=== PATIENT | female | born 1975 | race African-American/Black ===

== ENCOUNTER → 2016-12-19 | Outpatient (CLI) | payer OTHER ==
[2016-12-19 10:54] LABS: BASO # 0.1 x10^3/uL (0.0-0.2); BASO % 1 % (0-3); EOS % 0 % (0-3); HEMATOCRIT 36.3 % (36.0-47.0); HEMOGLOBIN 12.4 g/dL (12.0-15.5); LYMPH # 1.3 x10^3/uL (1.0-4.8); LYMPH % 17 % (24-48); MEAN CORPUSCULAR HEMOGLOBIN 30 pg (25-35); MEAN CORPUSCULAR HGB CONC 34 g/dL (31-37); MEAN CORPUSCULAR VOLUME 87 fL (79-100); MONO % 5 % (0-9); NEUT % 77 % (31-73); PLATELET COUNT 207 x10^3/uL (140-400); RED BLOOD COUNT 4.19 x10^6/uL (3.50-5.40); RED CELL DISTRIBUTION WIDTH 14.6 % (11.5-14.5); WHITE BLOOD COUNT 7.7 x10^3/uL (4.0-11.0)
[2016-12-19 11:08] LABS: ALBUMIN 2.6 g/dL (3.4-5.0); ALBUMIN/GLOBULIN RATIO 0.7 (1.0-1.7); CALCIUM 8.5 mg/dL (8.5-10.1); CREATININE 0.8 mg/dL (0.6-1.0); GFR 96.1; POTASSIUM 3.4 mmol/L (3.5-5.1); TOTAL BILIRUBIN 0.4 mg/dL (0.2-1.0); TOTAL PROTEIN 6.5 g/dL (6.4-8.2)
== END | disposition home or self-care (01) ==
LOC: LAB 09:25
PROVIDERS: ATTEND Obstetrics & Gynecology
DX: O09.90 Supervision of high risk pregnancy, unspecified, unspecified trimester (principal); O10.919 Unspecified pre-existing hypertension complicating pregnancy, unspecified trimester
CPT/HCPCS: 36415; 80053; 82950; 85027

== ENCOUNTER → 2016-12-26 | Outpatient (CLI) | payer OTHER | END | disposition home or self-care (01) | LOC: LAB 08:43 | PROVIDERS: ATTEND Obstetrics & Gynecology | DX: O09.90 Supervision of high risk pregnancy, unspecified, unspecified trimester (principal) | CPT/HCPCS: 36415; 82947; 82950 ==

== ENCOUNTER → 2017-01-27 | Outpatient (CLI) | payer OTHER ==
--- NOTE | 2017-01-27 16:57 | RAD ---
Obstetrical ultrasound-Limited, 01/27/2017: History: Large for dates, hypertension No previous studies are available at this time for direct comparison. There is a single intrauterine fetus in a cephalic orientation. The biparietal diameter measures 8.3 cm compatible with a gestational age of 33-34 weeks. This yields a sonographic EDC of 03/15/2017. Normal activity and heart motion were seen. The heart rate is 143 bpm. The weight was estimated at 4 pounds and 19 ounces +/- 11 ounces. A full survey was not performed at this time. There is placental tissue in the fundal region extending both anteriorly and posteriorly. A normal amount of amniotic fluid is present with the TIMMY calculated at 12.0. The cervix was not adequately delineated due to overlying head. IMPRESSION: Single viable intrauterine fetus of 33-34 weeks gestational age as described above.
== END | disposition home or self-care (01) ==
LOC: US 15:05
PROVIDERS: ATTEND Obstetrics & Gynecology
DX: O09.92 Supervision of high risk pregnancy, unspecified, second trimester (principal); O10.912 Unspecified pre-existing hypertension complicating pregnancy, second trimester
CPT/HCPCS: 76805